=== PATIENT | female | born 1945 | race Asian ===

== ENCOUNTER 2018-09-30 21:30 | Emergency (ER) | payer OTHER ==
[~2018-09-30] VITALS: Ht 167.6 cm; Wt 81.6 kg
[2018-09-30 21:30] VITALS: BP 139/72; TEMP 98.6
[2018-09-30 22:48] LABS: PLATELET COUNT 255 K/uL (152-353)
[2018-09-30 22:54] LABS: POTASSIUM 4.6 mmol/L (3.6-5.2)
[2018-10-01] MEDS ORDERED: OMEPRAZOLE DR20 MG PO (02:53)
[2018-10-01] MEDS ORDERED: CARBAMAZEPIN200 MG PO (02:56)
[2018-10-01] MEDS ORDERED: FERROUS SULF325 M1 PO (02:58)
[2018-10-01] MEDS ORDERED: FORTAMET500 MG PO (03:01)
[2018-10-01] MEDS ORDERED: RISP2TAB2 PO (03:03)
[2018-10-01] MEDS ORDERED: GABA300C2 PO (03:04)
[2018-10-01] MEDS ORDERED: IBU600 MG PO (03:06)
[2018-10-01] MEDS ORDERED: LIPITOR20 MG PO (03:08)
[2018-10-01] MEDS ORDERED: DONEPEZIL HYDROC5 MG PO (03:10)
[2018-10-01] MEDS ORDERED: ESCI10TA PO (03:12)
[2018-10-01] MEDS ORDERED: NAMENDA5 MG PO (03:14)
== END 2018-09-30 22:30 | disposition other institution (70) ==
LOC: ED 21:30
PROVIDERS: Emergency Medicine
DX: E86.0 Dehydration (principal); D64.89 Other specified anemias; Z04.6 Encounter for general psychiatric examination, requested by authority
CPT/HCPCS: 36415; 80053; 85027; 93005; 99285